=== PATIENT | female | born 1995 | race Caucasian/White ===

== ENCOUNTER 2018-07-18 11:22 | Emergency (ER) | payer OTHER ==
[2018-07-18] MEDS ORDERED: Silver Sulfadiazine 1% Crm 50 GM Tube TOP ONE (11:56)
--- NOTE | 2018-07-18 12:01 | EDM.PDOC ---
ED HPI GENERAL MEDICAL PROBLEM - General Chief Complaint: Burn Stated Complaint: BURN ON RT HAND Time Seen by Provider: 07/18/18 11:40 Source of Information: Reports: Patient History Limitations: Reports: No Limitations - History of Present Illness INITIAL COMMENTS - FREE TEXT/NARRATIVE: 22-year-old female spilled some grease on her right hand while cooking, sustaining barros along the ulnar aspect of the hand, the small finger, and a few areas on the palm. This occurred within the last hour. She does have some blistering. 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 - Infectious Disease History Infectious Disease History: Reports: Shingles - Past Surgical History Oncologic Surgical History: Reports: Bone Marrow Transplant Social & Family History - Tobacco Use Smoking Status *Q: Never Smoker - Caffeine Use Caffeine Use: Reports: Coffee, Soda - Recreational Drug Use Recreational Drug Use: No ED ROS GENERAL - Review of Systems Review Of Systems: See Below Constitutional: Denies: Fever, Chills Respiratory: Denies: Shortness of Breath GI/Abdominal: Denies: Nausea, Vomiting Hematologic/Lymphatic: Reports: Other (Leukemia survivor, bone marrow transplant several years ago) ED EXAM, BURN/SMOKE INHALATION - Physical Exam Exam: See Below Exam Limited By: No Limitations General Appearance: Alert, No Apparent Distress (Patient is uncomfortable but not distressed) Respiratory: No Respiratory Distress Extremities: Other (Exam is otherwise limited to the right hand. There is blistering with collapsed blisters along the ulnar aspect of the hand and palmar surface of the small finger, and also 2 small areas on the hypothenar and thenar area of the palm.) Course - Vital Signs Last Recorded V/S: Last Vital Signs Temp 97.6 F 07/18/18 11:34 Pulse 89 07/18/18 11:34 Resp 16 07/18/18 11:34 BP 116/82 07/18/18 11:34 Pulse Ox 97 07/18/18 11:34 - Orders/Labs/Meds Meds: Medications Discontinued Medications Generic Name Dose Route Start Last Admin Trade Name Aguilar PRN Reason Stop Dose Admin Silver Sulfadiazine 1 gm 07/18/18 11:56 07/18/18 12:06 Silvadene 1% Cream 50 Gm TOP 07/18/18 11:57 1 dose ONETIME ONE Administration - Re-Assessments/Exams Free Text/Narrative Re-Assessment/Exam: 07/18/18 11:59 Silvadene was applied to the burn areas and dressings applied. She was given 10 hydrocodone to use 1-2 every 4-6 hours for extra pain control and will redress the barros daily with Silvadene and recheck when home in 2-3 days. Departure - Departure Time of Disposition: 12:16 Disposition: Home, Self-Care 01 Condition: Good Clinical Impression: Second degree burn of right hand and fingers Qualifiers: Encounter type: initial encounter Qualified Code(s): T23.201A - Burn of second degree of right hand, unspecified site, initial encounter - Discharge Information Instructions: Burn Care, Adult, [id number] Referrals: PCP,None [Primary Care Provider] - Forms: ED Department Discharge Care Plan Goals: Keep barros covered today, clean and redress tomorrow and recheck when home in the next 2-3 days. Ibuprofen or naproxen will help with pain, add stronger pain medication if needed.
== END 2018-07-18 12:16 | disposition home or self-care (01) ==
LOC: JP.ED 11:22
DX: T23.251A Burn of second degree of right palm, initial encounter (principal); T23.221A Burn of second degree of single right finger (nail) except thumb, initial encounter; X10.1XXA Contact with hot food, initial encounter
CPT/HCPCS: 16020; 99284; A9270